=== PATIENT | female | born 1975 | race Caucasian/White ===

== ENCOUNTER → 2017-07-14 | Outpatient (CLI) | payer OTHER ==
--- NOTE | 2017-07-14 16:04 | REP ---
MRI LEFT FOOT: TECHNIQUE: Multiple sequences obtained in the axial, coronal, and sagittal planes prior to and following the intravenous administration of 14 mL of gadolinium. Palpable abnormality at the plantar aspect of the left foot soft tissues is marked on the skin. At that location there is subcutaneous nodular abnormal signal which is hypointense on T1 and mildly hyperintense on T2. There is heterogenous enhancement. The area measures approximately 2.3 x 1.2 x 1.9 cm. The signal abnormality is in the plantar tendon and more superficial plantar soft tissues. It extends to the skin. This is most consistent with plantar fibromatosis. No other mass is seen in the soft tissues. Visualized osseous structures demonstrate normal marrow signal and no abnormal enhancement. There is no occult fracture. Flexor and extensor tendons of the foot are otherwise unremarkable with no tenosynovitis. IMPRESSION: Soft tissue mass involving the plantar tendon and the more superficial soft tissues, extends to the skin. 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 Signed by Sven Santos MD 07/15/2017 05:35 P
== END ==
LOC: M RAD 13:45
PROVIDERS: ATTEND Family Medicine
DX: M79.672 Pain in left foot (principal)

== ENCOUNTER → 2019-09-18 | Outpatient (CLI) | payer OTHER ==
--- NOTE | 2019-09-18 09:32 | PFTRPT ---
Site: [facility], [address] [place] [address], [id number] ID: [id number] Name: CINDY SIMEON Visit Date: 09/18/2019 Second ID: [id number] Referring Doctor: Anais Faria Reviewing Doctor: Samuel Miller MD Piece Maker: Kurt WHITTAKER RRT Age: 44 : 1975 Sex: Female Race: Height: 65.00 Inches Weight: 150.00 Lbs BSA: 1.75 Order IDs: [id number] Requested Test(s): <RESP-PFT.DLCO> Diagnosis: ASTHMA test meet the ATS standards for acceptability and repeatability. Pt was given four puffs of albuterol for postbronchodilator. Review Status: Not Reviewed Pre-Bronch Post-Bronch Pred Actual %Pred Actual %Chng SPIROMETRY FVC (L) 3.76 4.16 110 4.13 FEV1 (L) 3.02 3.10 102 3.25 4 FEV1/FVC (%) 81 75 92 79 5 FEF 25% (L/sec) 5.46 6.01 110 6.71 11 FEF 50% (L/sec) 4.08 2.80 68 3.41 21 FEF 75% (L/sec) 1.57 0.98 62 1.09 11 FEF 25-75% (L/sec) 3.03 2.40 79 2.79 16 FEF Max (L/sec) 7.05 7.21 102 7.01 -2 FIVC (L) 4.17 4.11 -1 FIF 50% (L/sec) 3.77 5.43 144 4.97 -8 FIF Max (L/sec) 5.46 5.00 -8 MVV (L/min) 102 117 114 Expiratory Time (sec) 7.58 6.63 -12 Back Extrap Vol (L) 0.10 0.12 25 Time To FEFmax (sec) 0.079 0.115 45 LUNG VOLUMES SVC (L) 3.48 4.10 117 IC (L) 2.30 2.94 127 ERV (L) 1.18 1.16 98 TGV (L) 2.90 3.30 113 RV (Pleth) (L) 1.72 2.15 124 TLC (Pleth) (L) 5.20 6.25 120 RV/TLC (Pleth) (%) 33 34 104 DIFFUSION DLCOunc (ml/min/mmHg) 23.77 26.86 112 DL/VA (ml/min/mmHg/L) 4.57 4.72 103 VA (L) 5.20 5.69 109 BHT (sec) 10.16 IVC (L) 3.97 TLC (SB) (L) 5.84 AIRWAYS RESISTANCE Raw (cmH2O/L/s) 1.86 1.45 78 Gaw (L/s/cmH2O) 1.03 0.69 67 sRaw (cmH2O*s) 4.76 5.47 114 sGaw (1/cmH2O*s) 0.20 0.18 91
== END ==
LOC: M CARPUL 08:52
PROVIDERS: ATTEND Student in an Organized Health Care Education/Training Program
DX: J45.909 Unspecified asthma, uncomplicated (principal)

== ENCOUNTER → 2019-11-17 | Outpatient (CLI) | payer OTHER ==
[~2019-11-17] MED LIST: METHACHOLINE KIT (J7674) INH ONE
--- NOTE | 2019-11-17 10:57 | PFTRPT ---
Height: 65.00 Inches Weight: 150.00 Lbs BSA: 1.75 Diagnosis: R05 DATE OF PROCEDURE: 11/17/2019 ORDERED BY: Dr. Torres Cote INTERPRETATION: Study of excellent technical quality. Under protocol, methacholine was administered. At a dose of 10 mg or 63.875 CDUs, a 22% decline in the FEV1 was noted. PC of 5.75 is significant. Flow rates did return to baseline post bronchodilator administration. IMPRESSION: Positive methacholine challenge study. MTDD
== END ==
LOC: M CARPUL 11-15 13:27
PROVIDERS: ATTEND Internal Medicine
DX: R05 Cough (principal)
CPT/HCPCS: 94070; J7674